=== PATIENT | female | born 1995 | race African-American/Black ===

== ENCOUNTER 2017-02-05 16:46 | Emergency (ER) | payer OTHER, SELFPAY ==
[2017-02-05] MEDS ORDERED: Bacitracin Zinc 1 Packet ONE (18:12)
[2017-02-05] MEDS ORDERED: Ibuprofen 800 MG TAB ONE (18:12)
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
== END 2017-02-05 18:55 | disposition home or self-care (01) ==
LOC: ERS 16:46
DX: S16.1XXA Strain of muscle, fascia and tendon at neck level, initial encounter (principal); Z87.891 Personal history of nicotine dependence; V43.52XA Car driver injured in collision with other type car in traffic accident, initial encounter
CPT/HCPCS: 72040

== ENCOUNTER 2017-05-31 15:38 | Emergency (ER) | payer OTHER ==
[2017-05-31] MEDS ORDERED: Ibuprofen 200 MG TAB ONE (16:16)
== END 2017-05-31 16:23 | disposition home or self-care (01) ==
LOC: ERS 15:38
DX: G89.18 Other acute postprocedural pain (principal); Z87.891 Personal history of nicotine dependence
CPT/HCPCS: 99283